=== PATIENT | male | born 1985 | race Caucasian/White ===

== ENCOUNTER 2017-05-20 15:32 | Emergency (ER) | payer OTHER ==
[2017-05-20 15:43] VITALS: BMI 23.0
[2017-05-20 15:47] VITALS: RESP 18; TEMP 99; O2SAT 100
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
[2017-05-20 17:42] VITALS: BP 140/85; PULSE 89
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
--- NOTE | 2017-05-21 11:11 | RAD ---
PROCEDURE: Cervical Spine Radiographs. HISTORY: Pain. COMPARISON: None. FINDINGS: BONES: Alignment maintained. No fracture. Dens Intact. DISC SPACES: Normal. SOFT TISSUES: Normal. No prevertebral soft tissue swelling. OTHER FINDINGS: There is a mild degree of cervical kyphosis IMPRESSION: No acute finding
== END 2017-05-20 17:42 | disposition home or self-care (01) ==
LOC: EDBD 15:32 → ED 15:32
DX: S16.1XXA Strain of muscle, fascia and tendon at neck level, initial encounter (principal); S39.012A Strain of muscle, fascia and tendon of lower back, initial encounter; V49.9XXA Car occupant (driver) (passenger) injured in unspecified traffic accident, initial encounter
CPT/HCPCS: 72050; 72110; 96372; 99284; J1885